=== PATIENT | female | born 1990 | race Caucasian/White ===

== ENCOUNTER 2021-03-04 16:21 | Observation (INO) | payer MEDICAID ==
[2021-03-04 18:17] LABS: Basophils % (A) 0 %; Eosinophils % (A) 0 %; HCT 20.2 % (34.0-46.0); Hypochromasia Marked; Lymphocytes # (A) 2.2 k/uL (1.0-4.8); Lymphocytes % (A) 20 %; MCH 25.3 pg (25.0-35.0); MCHC 30.7 g/dL (31.0-37.0); MCV 82.3 fL (80.0-100.0); Mean Platelet Volume 9.8; Monocytes # (A) 0.4 k/uL (0-1.0); Monocytes % (A) 4 %; Neutrophils # (A) 8.1 k/uL (1.3-7.7); Neutrophils % (A) 75 %; Platelet Count 318 k/uL (150-450); Poikilocytosis Moderate; RBC 2.46 m/uL (3.80-5.40); RDW 14.3 % (11.5-15.5); WBC 10.9 k/uL (3.8-10.6)
--- NOTE | 2021-03-04 18:17 | ED ---
General Adult HPI - General Source: patient Mode of arrival: ambulatory Limitations: no limitations <Yvonne Tom - Last Filed: 03/05/21 00:55> <Evelia Raya - Last Filed: 03/05/21 16:13> - General Chief complaint: Vaginal Bleeding Stated complaint: Dizziness Time Seen by Provider: 03/04/21 17:09 - History of Present Illness Initial comments: 30 year-old female patient presents to the emergency department for evaluation of heavy vaginal bleeding for the last 4 days. She is A2 with two elective abortions over 14 years ago. Patient states she started her period at the normal time on 02/22/21. Had a normal for her period with maybe increase in blood clotting. She started her control ( Fe 1.5-30, taking for two years) on Monday and her bleeding increased signifcantly on Monday. States she was soaking through a pad or tampon every half hour for three days. States when she would remove her tampon she would pass very large blood clots. States symptoms seemed to have improved somewhat today but she is feeling dizzy, weak, and has had multiple near syncopal episodes throughout the day. She states when she goes up the stairs her muscles feel weak and fatigued. She has no appetite today. She denies history of similar symptoms. Has not taken a test. Denies use of blood thinning medications or history of clotting disorders. (Yvonne Tom) - Related Data Home Medications Medication Instructions Recorded Confirmed Dextroamphetamine/Amphetamine 30 mg PO DAILY 03/04/21 03/04/21 [Adderall Xr] Norethindrone-E.estradiol-Iron 1 tab PO DAILY 03/04/21 03/04/21 [Junel Fe 1.5 mg-30 Mcg Tablet] Allergies Allergy/AdvReac Type Severity Reaction Status Date / Time No Known Allergies Allergy Verified 03/04/21 19:37 Review of Systems ROS Other: All systems not noted in ROS Statement are negative. <Yvonne Tom - Last Filed: 03/05/21 00:55> ROS Other: All systems not noted in ROS Statement are negative. <Evelia Raya - Last Filed: 03/05/21 16:13> ROS Statement: Those systems with pertinent positive or pertinent negative responses have been documented in the HPI. Past Medical History Additional Past Medical History / Comment(s): migraine History of Any Multi-Drug Resistant Organisms: None Reported Past Surgical History: Section Additional Past Surgical History / Comment(s): C/S x3, D&C 2. Past Anesthesia/Blood Transfusion Reactions: No Reported Reaction Past Psychological History: ADD/ADHD Smoking Status: Never smoker Past Alcohol Use History: Occasional Past Drug Use History: None Reported - Past Family History Mother Family Medical History: No Reported History <Yvonne Tom Lucero - Last Filed: 03/05/21 00:55> General Exam Limitations: no limitations General appearance: alert, in no apparent distress, other (This is a well-d eveloped, well-nourished adult female in no acute distress.) Eye exam: Present: normal appearance, PERRL, EOMI, other (Pale conjunctiva). Absent: scleral icterus, conjunctival injection, periorbital swelling Respiratory exam: Present: normal lung sounds bilaterally. Absent: respiratory distress, wheezes, rales, rhonchi, stridor Cardiovascular Exam: Present: regular rate, normal rhythm, normal heart sounds. Absent: systolic murmur, diastolic murmur, rubs, gallop, clicks GI/Abdominal exam: Present: soft, normal bowel sounds. Absent: distended, tenderness, guarding, rebound, rigid External exam: Present: normal external exam Speculum exam: Present: normal speculum exam, other (Mild bleeding at this time. Cervical os closed) Neurological exam: Present: alert, oriented X3, CN II-XII intact Psychiatric exam: Present: normal affect, normal mood Skin exam: Present: warm, dry, intact, normal color. Absent: rash <Yvonne Tom M - Last Filed: 03/05/21 00:55> Course <Yvonne Tom - Last Filed: 03/05/21 00:55> Vital Signs 03/04/21 03/04/21 03/04/21 17:02 21:08 21:18 Temperature 98.2 F 99.0 F 99.5 F Pulse Rate 121 H 97 100 Respiratory 18 16 16 Rate Blood Pressure 109/69 113/73 109/79 O2 Sat by Pulse 100 100 100 Oximetry 03/04/21 03/04/21 03/04/21 21:30 21:45 22:00 Temperature 99 F 98.9 F 99 F Pulse Rate 98 100 98 Respiratory 18 16 16 Rate Blood Pressure 115/60 115/60 110/71 O2 Sat by Pulse 100 100 Oximetry 03/04/21 03/05/21 03/05/21 22:32 00:48 01:55 Temperature 99.4 F 98.5 F Pulse Rate 104 H 110 H 106 H Respiratory 16 18 16 Rate Blood Pressure 110/75 111/62 110/60 O2 Sat by Pulse 100 100 100 Oximetry 03/05/21 03/05/21 03/05/21 02:00 02:05 02:15 Temperature 98.5 F 98.8 F 98.8 F Pulse Rate 105 H 101 H 105 H Respiratory 15 16 16 Rate Blood Pressure 104/56 106/70 110/71 O2 Sat by Pulse 99 100 100 Oximetry 03/05/21 02:28 Temperature 98.7 F Pulse Rate 107 H Respiratory 16 Rate Blood Pressure 106/58 O2 Sat by Pulse 99 Oximetry - Reevaluation(s) Reevaluation #1: 03/04/21 18:29 Lab called and notified me directly of abnormal lab, HGB 6.2. (Yvonne Tom) Medical Decision Making - Lab Data Result diagrams: 03/04/21 18:00 03/04/21 18:00 - Radiology Data Radiology results: report reviewed, image reviewed <Yvonne Tom - Last Filed: 03/05/21 00:55> - Lab Data Result diagrams: 03/05/21 06:26 03/04/21 18:00 <Evelia Raya - Last Filed: 03/05/21 16:13> - Medical Decision Making 30-year-old female patient presented to the emergency department today for heavy vaginal bleeding, dizziness, weakness. Physical examination did reveal skin pallor, conjunctival pallor. She was tachycardic upon arrival. Labs reviewed and did reveal hemoglobin at 6.2. She tested negative for . Ultrasound did show small uterine fibroid, possible cervical nabothian cyst. Pelvic exam initially revealed scant bleeding from the cervical os. I did discuss the case with Dr. Cary initially who recommended giving a unit of packed red blood cells, with plan to discharge home for outpatient follow-up if her symptoms improved. Patient did receive 1 unit of packed red blood cells. She remained feeling weak and dizzy. She remained tachycardic especially with even short distance ambulation. She also had increase in vaginal bleeding and soaked through a tampon within 30 minutes. I performed additional pelvic exam which did reveal mild bleeding from the cervical os. I did remove several small clots from the vaginal vault. I discussed the case with Dr. Cary again who agrees to admission. We will give one additional unit of packed red cells. Repeat CBC in the morning. She will be NPO for possible D&C. Case is discussed with my attending Dr. Raya. (Yvonne Tom) I was available for consultation in the emergency department. The history and physical exam were done by the midlevel provider. I was consulted for this patients care. I reviewed the case with the midlevel provider and based on their presentation of the patient, I agree with the assessment, medical decision making and plan of care as documented. Chart was dictated using [employer] dictation software. Attempts were made to correct any dictation errors however some typographical errors may persist. Patient was seen during a national state of emergency due to the Covid-19 pandemic. (Evelia Raya) - Lab Data Lab Results 03/04/21 03/04/21 03/04/21 Range/Units 18:00 18:00 18:00 WBC 10.9 H (3.8-10.6) k/uL RBC 2.46 L (3.80-5.40) m/uL Hgb 6.2 L* (11.4-16.0) gm/dL Hct 20.2 L (34.0-46.0) % MCV 82.3 (80.0-100.0) fL MCH 25.3 (25.0-35.0) pg MCHC 30.7 L (31.0-37.0) g/dL RDW 14.3 (11.5-15.5) % Plt Count 318 (150-450) k/uL MPV 9.8 Neutrophils % 75 % Lymphocytes % 20 % Monocytes % 4 % Eosinophils % 0 % Basophils % 0 % Neutrophils # 8.1 H (1.3-7.7) k/uL Lymphocytes # 2.2 (1.0-4.8) k/uL Monocytes # 0.4 (0-1.0) k/uL Eosinophils # 0.0 (0-0.7) k/uL Basophils # 0.0 (0-0.2) k/uL Hypochromasia Marked Poikilocytosis Moderate PT 10.0 (9.0-12.0) sec INR 0.9 (<1.2) APTT 20.7 L (22.0-30.0) sec Sodium 137 (137-145) mmol/L Potassium 3.8 (3.5-5.1) mmol/L Chloride 104 (98-107) mmol/L Carbon Dioxide 23 (22-30) mmol/L Anion Gap 10 mmol/L BUN 17 (7-17) mg/dL Creatinine 0.69 (0.52-1.04) mg/dL Est GFR (CKD-EPI)AfAm >90 (>60 ml/min/1.73 sqM) Est GFR (CKD-EPI)NonAf >90 (>60 ml/min/1.73 sqM) Glucose 104 H (74-99) mg/dL Calcium 8.9 (8.4-10.2) mg/dL Total Bilirubin 0.3 (0.2-1.3) mg/dL AST 10 L (14-36) U/L ALT 13 (4-34) U/L Alkaline Phosphatase 58 (38-126) U/L Total Protein 6.5 (6.3-8.2) g/dL Albumin 3.8 (3.5-5.0) g/dL HCG, Quant <2.4 mIU/mL Urine Color Urine Appearance (Clear) Urine RBC (0-5) /hpf Urine WBC (0-5) /hpf Urine WBC Clumps (None) /hpf Urine Bacteria (None) /hpf Urine Mucus (None) /hpf Blood Type Blood Type Recheck Bld Type Recheck Status Antibody Screen Crossmatch Spec Expiration Date 03/04/21 03/04/21 Range/Units 18:00 Unknown WBC (3.8-10.6) k/uL RBC (3.80-5.40) m/uL Hgb (11.4-16.0) gm/dL Hct (34.0-46.0) % MCV (80.0-100.0) fL MCH (25.0-35.0) pg MCHC (31.0-37.0) g/dL RDW (11.5-15.5) % Plt Count (150-450) k/uL MPV Neutrophils % % Lymphocytes % % Monocytes % % Eosinophils % % Basophils % % Neutrophils # (1.3-7.7) k/uL Lymphocytes # (1.0-4.8) k/uL Monocytes # (0-1.0) k/uL Eosinophils # (0-0.7) k/uL Basophils # (0-0.2) k/uL Hypochromasia Poikilocytosis PT (9.0-12.0) sec INR (<1.2) APTT (22.0-30.0) sec Sodium (137-145) mmol/L Potassium (3.5-5.1) mmol/L Chloride (98-107) mmol/L Carbon Dioxide (22-30) mmol/L Anion Gap mmol/L BUN (7-17) mg/dL Creatinine (0.52-1.04) mg/dL Est GFR (CKD-EPI)AfAm (>60 ml/min/1.73 sqM) Est GFR (CKD-EPI)NonAf (>60 ml/min/1.73 sqM) Glucose (74-99) mg/dL Calcium (8.4-10.2) mg/dL Total Bilirubin (0.2-1.3) mg/dL AST (14-36) U/L ALT (4-34) U/L Alkaline Phosphatase (38-126) U/L Total Protein (6.3-8.2) g/dL Albumin (3.5-5.0) g/dL HCG, Quant mIU/mL Urine Color Red Urine Appearance Bloody H (Clear) Urine RBC >182 H (0-5) /hpf Urine WBC 17 H (0-5) /hpf Urine WBC Clumps Few H (None) /hpf Urine Bacteria Rare H (None) /hpf Urine Mucus Occasional H (None) /hpf Blood Type O Negative Blood Type Recheck O Neg Bld Type Recheck Status No Antibody Screen NEGATIVE Crossmatch See Detail Spec Expiration Date 03/07/2021 - 2299 - Radiology Data Transvaginal ultrasound was obtained. Report was reviewed in its entirety. Impression by Dr. Dunham shows complex fluid within the lower uterine segment, may represent blood products. Nonspecific 1.7 cm cystic lesion within the cervix, may relate to nabothian cyst. Attention on follow up. Pelvic free fluid. Uterine fibroid. (Yovnne Tom) Critical Care Time Critical Care Time: Yes <Evelia Raya - Last Filed: 03/05/21 16:13> Critical Care Time: 35 minutes for transfusion of blood products (Evelia Raya) Disposition Decision to Admit Reason: Admit from EC Decision Date: 03/05/21 Decision Time: 00:46 <Yvonne Tom - Last Filed: 03/05/21 00:55> <Evelia Raya - Last Filed: 03/05/21 16:13> Clinical Impression: Dysfunctional uterine bleeding, Acute anemia Disposition: ADMITTED IP TO THIS HOSP
[2021-03-04 18:21] LABS: HGB 6.2 gm/dL (11.4-16.0)
[2021-03-04 18:26] LABS: ALT 13 U/L (4-34); AST 10 U/L (14-36); African American GFR (CKD) >90 (>60 ml/min/1.73 sqM); Albumin 3.8 g/dL (3.5-5.0); Alkaline Phosphatase 58 U/L (38-126); Anion Gap 10 mmol/L; Blood Urea Nitrogen 17 mg/dL (7-17); Calcium 8.9 mg/dL (8.4-10.2); Carbon Dioxide 23 mmol/L (22-30); Chloride 104 mmol/L (98-107); Glucose 104 mg/dL (74-99); Non-African American GFR(CKD) >90 (>60 ml/min/1.73 sqM); Potassium 3.8 mmol/L (3.5-5.1); Sodium 137 mmol/L (137-145); Total Bilirubin 0.3 mg/dL (0.2-1.3); Total Protein 6.5 g/dL (6.3-8.2)
[2021-03-04 18:43] LABS: HCG,Quantitative Serum <2.4 mIU/mL
[2021-03-04 18:46] LABS: INR 0.9 (<1.2); Partial Thromboplastin Time 20.7 sec (22.0-30.0)
--- NOTE | 2021-03-04 19:29 | US ---
EXAMINATION TYPE: US transvaginal DATE OF EXAM: 03/04/2021 COMPARISON: OB US CLINICAL HISTORY: Heavy vaginal bleeding. Heavy vaginal bleeding. Hx 3 C Sections. TECHNIQUE: Transvaginal (TV). Date of LMP: 02/22/2021 EXAM MEASUREMENTS: Uterus: 9.1 x 5.3 x 4.0 cm Endometrial Stripe: 0.34 cm Right Ovary: 3.3 x 1.7 x 2.2 cm Left Ovary: Not seen. 1. Uterus: Anteverted Appears heterogeneous. Solid heterogeneous area seen anterior uterus: 1.6 x 1.5 x 1.5, compatible with fibroid. Anechoic area with hyperechoic component seen in cervix: 1.4 x 1 .7 x 0.8 cm. Complex fluid-appearing area seen within lower uterus: 1.4 x 2.3 x 0.5 cm. 2. Endometrium: Measures 0.34 cm. 3. Right Ovary: Small hyperechoic focus seen. Multiple anechoic areas seen, largest measures: 1.1 x 0.9 x 1.0, compatible with physiologic follicles. 4. Left Ovary: Not seen. Spectral, color and waveform doppler imaging shows arterial and venous flow within the ovary. Left ovary not seen. 5. Bilateral Adnexa: Appear wnl. 6. Posterior cul-de-sac: Fluid seen. IMPRESSION: Complex fluid within the lower uterine segment, may represent blood products. Nonspecific 1.7 cm cystic lesion within the cervix, may relate to nabothian cyst. Attention on follow -up. Pelvic free fluid. Uterine fibroid.
[2021-03-04 20:22] LABS: Bacteria,Urine Rare /hpf; Mucus,Urine Occasional /hpf; RBC,Urine >182 /hpf (0-5); WBC,Urine 17 /hpf (0-5)
[2021-03-04 20:23] LABS: Appearance,Urine Bloody (Clear); Color,Urine Red
[2021-03-05] MEDS ORDERED: ONDANSETRON 4 MG/2 ML VIAL IVP PRN (00:44)
[2021-03-05] MEDS ORDERED: NALOXONE 0.4 MG/ML 1 ML VIAL IV PRN (00:44)
[2021-03-05 06:50] LABS: Basophils % (A) 0 %; Eosinophils # (A) 0.1 k/uL (0-0.7); Eosinophils % (A) 1 %; HCT 22.3 % (34.0-46.0); HGB 7.1 gm/dL (11.4-16.0); Hypochromasia Moderate; Lymphocytes # (A) 2.1 k/uL (1.0-4.8); Lymphocytes % (A) 23 %; MCH 27.3 pg (25.0-35.0); MCHC 31.7 g/dL (31.0-37.0); MCV 86.3 fL (80.0-100.0); Mean Platelet Volume 10.1; Monocytes # (A) 0.4 k/uL (0-1.0); Monocytes % (A) 4 %; Neutrophils # (A) 6.4 k/uL (1.3-7.7); Neutrophils % (A) 71 %; Platelet Count 229 k/uL (150-450); Poikilocytosis Moderate; RBC 2.59 m/uL (3.80-5.40); RDW 14.7 % (11.5-15.5)
--- NOTE | 2021-03-05 07:09 | P.HPOB ---
History of Present Illness H&P Date: 03/05/21 Chief Complaint: Menorrhagia and secondary anemia This patient is a pleasant 30-year-old 5 para 3 female who called my office yesterday with complaints of heavy vaginal bleeding for approximately 4 days and other symptomatology including fatigue and shortness of breath. Patient's been on oral contraceptives without significant problems. She states that on Monday she started having heavy vaginal bleeding saturating pads and flooding episodes. This did not resolve and she subsequently went to the emergency department found to have a hemoglobin of 6.2. Patient was admitted last evening by Dr. Cary and has been given 2 units of blood. Ultrasound showed some small uterine fibroids but nothing else remarkable. The endometrium was only 0.3 cm. I examined the patient this morning and she is having some dark red bleeding but no active appearing bleeding. I discussed options with her including D&C versus trial of high-dose oral contraceptive taper and we are going to proceed with trial of hormonal therapy. Review of Systems Constitutional: Reports as per HPI Genitourinary: Reports as per HPI, Reports abnormal vaginal bleeding Past Medical History Additional Past Medical History / Comment(s): migraine History of Any Multi-Drug Resistant Organisms: None Reported Past Surgical History: Section Additional Past Surgical History / Comment(s): C/S x3, D&C 2. Past Anesthesia/Blood Transfusion Reactions: No Reported Reaction Past Psychological History: ADD/ADHD Smoking Status: Never smoker Past Alcohol Use History: Occasional Past Drug Use History: None Reported - Past Family History Mother Family Medical History: No Reported History Medications and Allergies Home Medications Medication Instructions Recorded Confirmed Type Dextroamphetamine/Amphetamine 30 mg PO DAILY 03/04/21 03/04/21 History [Adderall Xr] Norethindrone-E.estradiol-Iron 1 tab PO DAILY 03/04/21 03/04/21 History [Junel Fe 1.5 mg-30 Mcg Tablet] Allergies Allergy/AdvReac Type Severity Reaction Status Date / Time No Known Allergies Allergy Verified 03/04/21 19:37 Exam Vital Signs Temp Pulse Resp BP Pulse Ox 03/05/21 04:55 98.4 F 78 16 100/63 03/05/21 02:35 98.4 F 83 16 100/63 99 03/05/21 02:28 98.7 F 107 H 16 106/58 99 03/05/21 02:15 98.8 F 105 H 16 110/71 100 03/05/21 02:05 98.8 F 101 H 16 106/70 100 03/05/21 02:00 98.5 F 105 H 15 104/56 99 03/05/21 01:55 98.5 F 106 H 16 110/60 100 03/05/21 00:48 110 H 18 111/62 100 03/04/21 22:32 99.4 F 104 H 16 110/75 100 03/04/21 22:00 99 F 98 16 110/71 03/04/21 21:45 98.9 F 100 16 115/60 100 03/04/21 21:30 99 F 98 18 115/60 100 03/04/21 21:18 99.5 F 100 16 109/79 100 03/04/21 21:08 99.0 F 97 16 113/73 100 03/04/21 17:02 98.2 F 121 H 18 109/69 100 Intake and Output 03/04/21 03/05/21 03/05/21 22:59 06:59 14:59 Intake Total 0 590 Balance 0 590 Intake: Blood Product 0 590 Rc As-1 Unit 0 310 [id number] Rc Pheresis 2 As3 Unit 280 [id number] Other: # Voids 1 Weight 78.018 kg 78.018 kg - OBG Physical Exam Vulva: Exam is limited to the perineum. She's having some scant amount of dark red bleeding at this time. Results Result Diagrams: 03/05/21 06:26 03/04/21 18:00 Abnormal Lab Results - Last 24 Hours (Table) 03/04/21 03/04/21 03/04/21 Range/Units 18:00 18:00 18:00 WBC 10.9 H (3.8-10.6) k/uL RBC 2.46 L (3.80-5.40) m/uL Hgb 6.2 L* (11.4-16.0) gm/dL Hct 20.2 L (34.0-46.0) % MCHC 30.7 L (31.0-37.0) g/dL Neutrophils # 8.1 H (1.3-7.7) k/uL APTT 20.7 L (22.0-30.0) sec Glucose 104 H (74-99) mg/dL AST 10 L (14-36) U/L Urine Appearance (Clear) Urine RBC (0-5) /hpf Urine WBC (0-5) /hpf Urine WBC Clumps (None) /hpf Urine Bacteria (None) /hpf Urine Mucus (None) /hpf Crossmatch 03/04/21 03/04/21 03/05/21 Range/Units 18:00 Unknown 06:26 WBC (3.8-10.6) k/uL RBC 2.59 L (3.80-5.40) m/uL Hgb 7.1 L (11.4-16.0) gm/dL Hct 22.3 L (34.0-46.0) % MCHC (31.0-37.0) g/dL Neutrophils # (1.3-7.7) k/uL APTT (22.0-30.0) sec Glucose (74-99) mg/dL AST (14-36) U/L Urine Appearance Bloody H (Clear) Urine RBC >182 H (0-5) /hpf Urine WBC 17 H (0-5) /hpf Urine WBC Clumps Few H (None) /hpf Urine Bacteria Rare H (None) /hpf Urine Mucus Occasional H (None) /hpf Crossmatch See Detail Microbiology - Last 24 Hours (Table) 03/04/21 Unknown Urine Culture - Preliminary Urine,Clean Catch Assessment and Plan Assessment: This is a pleasant 30-year-old 5 para 3 female with a several day history of heavy vaginal bleeding and now with secondary anemia. I had a long discussion with the patient about treatment options including D&C and hormonal therapy. Since her ultrasound does not show any significant intrauterine pathology or leaning towards hormonal treatment at this time. Certainly she will need to have a D&C at some point in the near future however at today she wishes to try an oral contraceptive taper. I did give her this medication and instructed her how to take. Hemoglobin after 2 units of blood is 7.1 therefore I do think it warrants her having another unit of blood because she wishes to resume normal activities as quickly as possible. Plan is to watch her this morning and give her another unit of blood if she continues to feel better and maybe discharge home later today and follow up with me on Monday as an outpatient. (1) Acute anemia Current Visit: Yes Status: Acute Code(s): D64.9 - ANEMIA, UNSPECIFIED SNOMED Code(s): 466102131 (2) Dysfunctional uterine bleeding Current Visit: Yes Status: Acute Code(s): N93.8 - OTHER SPECIFIED ABNORMAL UTERINE AND VAGINAL BLEEDING SNOMED Code(s): 44459102156940
--- NOTE | 2021-03-05 12:32 | P.PN ---
Progress Note - Text Progress Note Date: 03/05/21 Patient seen again this morning. Between this morning and this afternoon she began having heavy bleeding again and passed several large clots. I discussed with the patient and the next step in management and I believe she needs to proceed with a dilation and curettage in hopes of stopping further bleeding. She is completely agreeable. I did discuss the surgery and risks and risks of infection, bleeding, possible uterine perforation. All the patient's questions are answered and a written consent is obtained. She understands if she were to continue to have bleeding problems of a could not stop she could ultimately need further definitive surgery. Plan is dilation and curettage later this afternoon.
[2021-03-05] MEDS ORDERED: IV FLUID CONTINUATION 1,000 ML IV ONE (15:32)
[2021-03-05] MEDS ORDERED: LACTATED RINGERS 1,000 ML IV ONE (15:32)
[2021-03-05] MEDS ORDERED: ONDANSETRON 4 MG/2 ML VIAL IVP ONE (15:41)
[2021-03-05] MEDS ORDERED: DEXAMETHASONE SOD PHOSPHATE 4 MG/ML 1 ML VIAL IVP ONE (15:44)
[2021-03-05] MEDS ORDERED: SCOPOLAMINE 1.5MG/72HR PATCH TRANSDERM ONE (15:45)
[2021-03-05] MEDS ORDERED: PROPOFOL 10 MG/ML 20 ML VIAL IV ONE (16:35)
[2021-03-05] MEDS ORDERED: SUCCINYLCHOLINE CHLORIDE 100 MG/5 ML SYR IV ONE (16:35)
[2021-03-05] MEDS ORDERED: MIDAZOLAM 2 MG/2 ML VIAL ONE (16:35)
[2021-03-05] MEDS ORDERED: fentaNYL (PF) 50 MCG/ML 2 ML AMP ONE (16:35)
--- NOTE | 2021-03-05 17:15 | P.OP ---
Date of Procedure: 03/05/21 Preoperative Diagnosis: Menorrhagia with secondary anemia Postoperative Diagnosis: Same Procedure(s) Performed: Dilation and curettage Anesthesia: ANTONY Surgeon: Ramana Berry Estimated Blood Loss (ml): 20 Urine output (ml): 25 Pathology: other (Uterine curettings) Condition: stable Disposition: PACU Indications for Procedure: Please see dictated H&P for intimate details of this patient's admission. In brief summary this is a pleasant 30-year-old 5 para 3 female who presented to the emergency department yesterday evening with complaints of 4 days of heavy vaginal bleeding. Evaluation in the emergency department showed a hemoglobin of 6.2 and a ultrasound with small fibroids but normal-appearing uterine lining. Patient was initially thought to be slowing down and we began the oral contraceptive taper in hopes of treating this nonsurgically. Patient however began bleeding heavier morning and therefore he now presents for D&C to further attempt treatment. Patient does understand the surgery and risks and risks of infection, bleeding, possible uterine perforation. All the patient's questions are answered and a written consent is obtained. Operative Findings: This patient had a normal feeling endometrial cavity without evidence of polyps or fibroids. There was not a lot of endometrial tissue Description of Procedure: This patient is taken to the operating room where she is laid in the supine position. She subsequently undergoes general endotracheal anesthesia without incident. With an adequate level of anesthesia she's placed in dorsal lithotomy position. She has a vaginal perineal prep and drape. Examination under anesthesia shows a slightly enlarged uterus of normal size otherwise. There is some dark red blood in the vault. Bladder is drained at this time for 25 mL of clear urine. I then placed a weighted speculum the posterior vagina. The anterior lip of the cervix is gravid and Allis clamp and the uterus is then sounded to 8.5 cm. Gentle dilation is done of the endocervix. With this done I then take a polyp forceps and make several passes through the cavity without any significant tissue. A gentle but thorough sharp curettage is then done of all 4 quadrants again with scant amount of tissue. Feeling the lining and does not feel to be irregular. After multiple passes are done and the bleeding appears to subside the procedure is ended. The Allis clamp and weighted speculum removed. All counts are correct 3. There are no complications. Patient is awakened from anesthesia and taken recovery room in satisfactory condition.
[2021-03-05] MEDS ORDERED: HYDROmorphone 0.5 MG/0.5 ML SYRINGE IVP ONE ×2 (17:35→17:41)
[2021-03-05 18:17] LABS: Basophils % (A) 0 %; Eosinophils % (A) 0 %; HCT 24.3 % (34.0-46.0); HGB 7.8 gm/dL (11.4-16.0); Hypochromasia Moderate; Lymphocytes % (A) 8 %; MCH 27.8 pg (25.0-35.0); MCV 86.9 fL (80.0-100.0); Mean Platelet Volume 9.5; Monocytes # (A) 0.2 k/uL (0-1.0); Monocytes % (A) 1 %; Neutrophils # (A) 11.7 k/uL (1.3-7.7); Neutrophils % (A) 90 %; Platelet Count 241 k/uL (150-450); Poikilocytosis Moderate; RDW 15.1 % (11.5-15.5)
--- NOTE | 2021-03-05 18:33 | P.PN ---
Progress Note - Text Progress Note Date: 03/05/21 I did have a discussion with the patient in recovery room and her regards to surgical findings. I did not find any significant tissue growths or abnormalities on her D&C however it did appear to help her bleeding subside. I did a CBC in recovery room was 7.8 and plan at this time is to transfuse one more unit of blood and if her bleeding means good and her CBC is fine in the morning and she could potentially go home follow up with me on Monday. I did again want her to continue her oral contraceptive taper and efforts to heal the lining. If she were to continue bleeding excessively the next step would be a trial of endometrial ablation and I did discuss this possibility with them briefly. Dr. Savage resume care of this patient over the weekend in my absence.
[2021-03-06 06:33] LABS: Basophils % (A) 0 %; Eosinophils % (A) 0 %; HCT 28.9 % (34.0-46.0); HGB 9.1 gm/dL (11.4-16.0); Hypochromasia Moderate; Lymphocytes # (A) 1.5 k/uL (1.0-4.8); Lymphocytes % (A) 16 %; MCHC 31.4 g/dL (31.0-37.0); MCV 89.4 fL (80.0-100.0); Mean Platelet Volume 9.8; Monocytes # (A) 0.4 k/uL (0-1.0); Monocytes % (A) 4 %; Neutrophils # (A) 7.5 k/uL (1.3-7.7); Neutrophils % (A) 79 %; Platelet Count 246 k/uL (150-450); Poikilocytosis Moderate; RBC 3.23 m/uL (3.80-5.40); RDW 15.2 % (11.5-15.5); WBC 9.5 k/uL (3.8-10.6)
[2021-03-06 09:05] VITALS: BP 93/63; PULSE 83; RESP 14; TEMP 98.5
--- NOTE | 2021-03-06 10:01 | P.DS ---
Providers Date of admission: 03/05/21 01:12 Expected date of discharge: 03/06/21 Attending physician: Ramana Berry Primary care physician: Zach Acharya [facility] Course: Jacky is feeling very well this morning. She relates that since her D&C last night she has had very light spotting no active bleeding and no passage of clots. She has the remainder of her estradiol that she's been taking over the next couple of days and has an appointment scheduled with Dr. Berry next week. Her hemoglobin this morning is 9.1 following 1 further unit of blood and she relates that she is feeling very well. She would like breakfast. We'll plan to allow her to have a diet this morning and plan for discharged home later today. Vital signs are stable and afebrile. Heart regular, lungs clear, extremities without pain. Abdomen is soft and nontender. Assessment acute anemia from blood loss with menorrhagia of unknown etiology pathology pending from D&C. Plan as above she is aware should she start having any significant heavy bleeding or passage of clots with the weekend that she is to notify us or return through the emergency room and there is a potential that she will need to have either NovaSure ablation or definitive surgery should that occur. Patient Condition at Discharge: Good Plan - Discharge Summary Discharge Rx Participant: Yes New Discharge Prescriptions: No Action Norethindrone-E.estradiol-Iron [Junel Fe 1.5 mg-30 Mcg Tablet] 1 tab PO DAILY Dextroamphetamine/Amphetamine [Adderall Xr] 30 mg PO DAILY Discharge Medication List Dextroamphetamine/Amphetamine [Adderall Xr] 30 mg PO DAILY 03/04/21 [History] Norethindrone-E.estradiol-Iron [Junel Fe 1.5 mg-30 Mcg Tablet] 1 tab PO DAILY 03/04/21 [History] Follow up Appointment(s)/Referral(s): Ramana Berry MD [STAFF PHYSICIAN] - 03/08/21 9:15 am Ambulatory/Diagnostic Orders: Miscellaneous Lab Order [LAB.AMB] Location: None Selected Patient Instructions/Handouts: Anemia (DC) Activity/Diet/Wound Care/Special Instructions: Please take the oral contraceptive taper as instructed (3 pills on Monday, 2 pills on Monday, and 2 pills on Monday). No intercourse or anything per vagina for 7 days. Please follow-up on Monday at 9:30 in my office as instructed. Discharge Disposition: HOME SELF-CARE
== END 2021-03-06 15:05 | disposition home or self-care (01) ==
LOC: EC 16:21 → 4SSUR 03-05 01:12
PROVIDERS: ADMIT Obstetrics & Gynecology; ATTEND Obstetrics & Gynecology
DX: N92.0 Excessive and frequent menstruation with regular cycle (principal); D62 Acute posthemorrhagic anemia; D25.9 Leiomyoma of uterus, unspecified; R00.0 Tachycardia, unspecified; N93.8 Other specified abnormal uterine and vaginal bleeding; G43.909 Migraine, unspecified, not intractable, without status migrainosus; F90.9 Attention-deficit hyperactivity disorder, unspecified type; Z20.822 Contact with and (suspected) exposure to COVID-19; Z79.3 Long term (current) use of hormonal contraceptives; Z79.899 Other long term (current) drug therapy
CPT/HCPCS: 36430 ×2; 58120; 99285; 36415; 93005; 86900; 86901; 88305; 80053; 85025 ×3; 85610; 85730; 86850; 86920 ×2; 84702; 87086; 87635; 93976; 76830; G0378 ×2; P9016 ×2; J2250; J1100; J2405; J3010; J0330; J2704; J1170

== ENCOUNTER → 2021-03-08 | Outpatient (CLI) | payer MEDICAID ==
[2021-03-08 08:53] LABS: HCT 28.7 % (34.0-46.0); HGB 9.2 gm/dL (11.4-16.0); Hypochromasia Marked; MCH 28.8 pg (25.0-35.0); Mean Platelet Volume 9.5; Platelet Count 225 k/uL (150-450); Poikilocytosis Slight; RBC 3.19 m/uL (3.80-5.40); RDW 15.8 % (11.5-15.5); WBC 9.8 k/uL (3.8-10.6)
== END | disposition home or self-care (01) ==
LOC: LABWHC1 08:31
PROVIDERS: ATTEND Nurse Practitioner
DX: N93.9 Abnormal uterine and vaginal bleeding, unspecified (principal)
CPT/HCPCS: 36415; 85027

== ENCOUNTER → 2021-03-26 | Outpatient (CLI) | payer MEDICAID ==
[2021-03-26 12:30] LABS: Basophils % (A) 0 %; Eosinophils # (A) 0.1 k/uL (0-0.7); Eosinophils % (A) 1 %; HCT 32.7 % (34.0-46.0); HGB 9.6 gm/dL (11.4-16.0); Hypochromasia Marked; Lymphocytes # (A) 2.3 k/uL (1.0-4.8); Lymphocytes % (A) 29 %; MCH 25.6 pg (25.0-35.0); MCHC 29.4 g/dL (31.0-37.0); MCV 87.1 fL (80.0-100.0); Mean Platelet Volume 8.8; Monocytes # (A) 0.3 k/uL (0-1.0); Monocytes % (A) 4 %; Neutrophils # (A) 5.2 k/uL (1.3-7.7); Neutrophils % (A) 64 %; Platelet Count 384 k/uL (150-450); Poikilocytosis Slight; RBC 3.75 m/uL (3.80-5.40); RDW 15.9 % (11.5-15.5); WBC 8.1 k/uL (3.8-10.6)
[2021-03-26 12:39] LABS: ALT 13 U/L (4-34); AST 11 U/L (14-36); African American GFR (CKD) >90 (>60 ml/min/1.73 sqM); Albumin 4.2 g/dL (3.5-5.0); Albumin/Globulin Ratio 1.4; Alkaline Phosphatase 59 U/L (38-126); Anion Gap 10 mmol/L; Blood Urea Nitrogen 15 mg/dL (7-17); Calcium 9.7 mg/dL (8.4-10.2); Carbon Dioxide 25 mmol/L (22-30); Chloride 104 mmol/L (98-107); Globulin 2.9 g/dL; Glucose 100 mg/dL (74-99); Non-African American GFR(CKD) >90 (>60 ml/min/1.73 sqM); Potassium 4.5 mmol/L (3.5-5.1); Sodium 139 mmol/L (137-145); Total Bilirubin 0.5 mg/dL (0.2-1.3); Total Protein 7.1 g/dL (6.3-8.2)
== END | disposition home or self-care (01) ==
LOC: LABWHC1 11:31
PROVIDERS: ATTEND Family Medicine
DX: D64.9 Anemia, unspecified (principal)
CPT/HCPCS: 36415; 80053; 85025

== ENCOUNTER 2021-03-30 13:28 | Emergency (ER) | payer MEDICAID ==
[2021-03-30 13:48] VITALS: BP 122/61; RESP 20; TEMP 97.9
[2021-03-30 14:01] LABS: Anisocytosis Slight; Basophils % (A) 0 %; Eosinophils # (A) 0.1 k/uL (0-0.7); Eosinophils % (A) 1 %; HCT 31.1 % (34.0-46.0); HGB 9.5 gm/dL (11.4-16.0); Hypochromasia Marked; Lymphocytes % (A) 25 %; MCH 26.2 pg (25.0-35.0); MCHC 30.6 g/dL (31.0-37.0); MCV 85.5 fL (80.0-100.0); Mean Platelet Volume 8.6; Monocytes # (A) 0.3 k/uL (0-1.0); Monocytes % (A) 4 %; Neutrophils # (A) 5.3 k/uL (1.3-7.7); Neutrophils % (A) 68 %; Platelet Count 277 k/uL (150-450); Poikilocytosis Slight; RBC 3.64 m/uL (3.80-5.40); RDW 16.5 % (11.5-15.5); WBC 7.8 k/uL (3.8-10.6)
[2021-03-30 14:17] LABS: ALT 13 U/L (4-34); AST 13 U/L (14-36); African American GFR (CKD) >90 (>60 ml/min/1.73 sqM); Albumin 4.2 g/dL (3.5-5.0); Alkaline Phosphatase 59 U/L (38-126); Anion Gap 11 mmol/L; Blood Urea Nitrogen 14 mg/dL (7-17); Calcium 9.2 mg/dL (8.4-10.2); Carbon Dioxide 23 mmol/L (22-30); Chloride 106 mmol/L (98-107); Glucose 135 mg/dL (74-99); Non-African American GFR(CKD) >90 (>60 ml/min/1.73 sqM); Potassium 3.9 mmol/L (3.5-5.1); Sodium 140 mmol/L (137-145); Total Bilirubin 0.4 mg/dL (0.2-1.3)
[2021-03-30 15:45] VITALS: PULSE 88
--- NOTE | 2021-03-30 15:52 | ED ---
Female Urogenital HPI - General Chief complaint: Vaginal Bleeding Stated complaint: hemorrhaging Time Seen by Provider: 03/30/21 14:14 Source: patient Mode of arrival: ambulatory Limitations: no limitations - History of Present Illness Initial comments: Patient is a 30-year-old A2 female who presents to the emergency department with heavy vaginal bleeding. Patient seen previously in the emergency department on 03/04/21 for the vaginal bleeding with ultrasound showing small uterine fibroids, otherwise unremarkable. Patient was then given 2 units of blood due to hemoglobin of 6.2 and admitted to the hospital. Patient was evaluated Jamal who performed a dilation and curettage on 03/05/21. She was discharged with an oral contraceptive taper. Patient reports that the vaginal bleeding was minimal until last night when she started to see blood clots in the toilet. She reports her cycle does not start until next week. Currently, patient reports dizziness. She denies fever, chills, chest pain, shortness of breath, loss of consciousness. - Related Data Home Medications Medication Instructions Recorded Confirmed Dextroamphetamine/Amphetamine 30 mg PO DAILY 03/04/21 03/30/21 [Adderall Xr] Norethindrone-E.estradiol-Iron 1 tab PO DAILY 03/04/21 03/30/21 [Junel Fe 1.5 mg-30 Mcg Tablet] Allergies Allergy/AdvReac Type Severity Reaction Status Date / Time No Known Allergies Allergy Verified 03/30/21 15:58 Review of Systems ROS Statement: Those systems with pertinent positive or pertinent negative responses have been documented in the HPI. ROS Other: All systems not noted in ROS Statement are negative. Past Medical History Additional Past Medical History / Comment(s): migraine History of Any Multi-Drug Resistant Organisms: None Reported Past Surgical History: Section Additional Past Surgical History / Comment(s): C/S x3, D&C 2. Past Anesthesia/Blood Transfusion Reactions: No Reported Reaction Past Psychological History: ADD/ADHD Smoking Status: Never smoker Past Alcohol Use History: Occasional Past Drug Use History: None Reported - Past Family History Mother Family Medical History: No Reported History General Exam Limitations: no limitations General appearance: alert, in no apparent distress Head exam: Present: atraumatic, normocephalic, normal inspection Eye exam: Present: normal appearance, PERRL, EOMI. Absent: scleral icterus, conjunctival injection, periorbital swelling Respiratory exam: Present: normal lung sounds bilaterally. Absent: respiratory distress, wheezes, rales, rhonchi, stridor Cardiovascular Exam: Present: regular rate, normal rhythm, normal heart sounds. Absent: systolic murmur, diastolic murmur, rubs, gallop, clicks GI/Abdominal exam: Present: soft. Absent: tenderness Extremities exam: Present: normal inspection, full ROM, normal capillary refill Neurological exam: Present: alert, oriented X3, CN II-XII intact Psychiatric exam: Present: normal affect, normal mood Skin exam: Present: warm, dry, intact, normal color. Absent: rash, pallor Course Vital Signs 03/30/21 03/30/21 13:45 15:15 Temperature 97.9 F Pulse Rate 103 H 88 Respiratory 20 Rate Blood Pressure 122/61 O2 Sat by Pulse 99 97 Oximetry - Reevaluation(s) Reevaluation #1: 03/30/21 15:53 I reevaluated the patient at 3:15 PM. Patient is resting comfortably in bed. Heart rate 88 bpm. Medical Decision Making - Medical Decision Making This is a A2 female who presents with heavy vaginal bleeding since last night. Patient had a dilation and curettage performed on 03/05/[address] Berry due to heavy vaginal bleeding. Hemoglobin is 9.5, similar to her previous visits in February of 2021. Results discussed with Dr. Wing who did come to a [facility] emergency department to evaluate patient. Patient instructed to double her dose of oral contraceptive until ablation procedure in next week. Patient understands plan. Return parameters discussed. - Lab Data Result diagrams: 03/30/21 13:55 03/30/21 13:55 Lab Results 03/30/21 03/30/21 03/30/21 Range/Units 06:04 13:55 13:55 WBC 7.8 (3.8-10.6) k/uL RBC 3.64 L (3.80-5.40) m/uL Hgb 9.5 L (11.4-16.0) gm/dL Hct 31.1 L (34.0-46.0) % MCV 85.5 (80.0-100.0) fL MCH 26.2 (25.0-35.0) pg MCHC 30.6 L (31.0-37.0) g/dL RDW 16.5 H (11.5-15.5) % Plt Count 277 (150-450) k/uL MPV 8.6 Neutrophils % 68 % Lymphocytes % 25 % Monocytes % 4 % Eosinophils % 1 % Basophils % 0 % Neutrophils # 5.3 (1.3-7.7) k/uL Lymphocytes # 2.0 (1.0-4.8) k/uL Monocytes # 0.3 (0-1.0) k/uL Eosinophils # 0.1 (0-0.7) k/uL Basophils # 0.0 (0-0.2) k/uL Hypochromasia Marked Poikilocytosis Slight Anisocytosis Slight Sodium 140 (137-145) mmol/L Potassium 3.9 (3.5-5.1) mmol/L Chloride 106 (98-107) mmol/L Carbon Dioxide 23 (22-30) mmol/L Anion Gap 11 mmol/L BUN 14 (7-17) mg/dL Creatinine 0.81 (0.52-1.04) mg/dL Est GFR (CKD-EPI)AfAm >90 (>60 ml/min/1.73 sqM) Est GFR (CKD-EPI)NonAf >90 (>60 ml/min/1.73 sqM) Glucose 135 H (74-99) mg/dL Calcium 9.2 (8.4-10.2) mg/dL Total Bilirubin 0.4 (0.2-1.3) mg/dL AST 13 L (14-36) U/L ALT 13 (4-34) U/L Alkaline Phosphatase 59 (38-126) U/L Total Protein 7.0 (6.3-8.2) g/dL Albumin 4.2 (3.5-5.0) g/dL Urine Color Urine Appearance (Clear) Urine pH (5.0-8.0) Ur Specific [place] (1.001-1.035) Urine Protein (Negative) Urine Glucose (UA) (Negative) Urine Ketones (Negative) Urine Blood (Negative) Urine Nitrite (Negative) Urine Bilirubin (Negative) Urine Urobilinogen (<2.0) mg/dL Ur Leukocyte Esterase (Negative) Urine RBC (0-5) /hpf Urine WBC (0-5) /hpf Ur Squamous Epith Cells (0-4) /hpf Urine Mucus (None) /hpf Urine HCG, Qual Not Detected (Not Detectd) 03/30/21 Range/Units 16:04 WBC (3.8-10.6) k/uL RBC (3.80-5.40) m/uL Hgb (11.4-16.0) gm/dL Hct (34.0-46.0) % MCV (80.0-100.0) fL MCH (25.0-35.0) pg MCHC (31.0-37.0) g/dL RDW (11.5-15.5) % Plt Count (150-450) k/uL MPV Neutrophils % % Lymphocytes % % Monocytes % % Eosinophils % % Basophils % % Neutrophils # (1.3-7.7) k/uL Lymphocytes # (1.0-4.8) k/uL Monocytes # (0-1.0) k/uL Eosinophils # (0-0.7) k/uL Basophils # (0-0.2) k/uL Hypochromasia Poikilocytosis Anisocytosis Sodium (137-145) mmol/L Potassium (3.5-5.1) mmol/L Chloride (98-107) mmol/L Carbon Dioxide (22-30) mmol/L Anion Gap mmol/L BUN (7-17) mg/dL Creatinine (0.52-1.04) mg/dL Est GFR (CKD-EPI)AfAm (>60 ml/min/1.73 sqM) Est GFR (CKD-EPI)NonAf (>60 ml/min/1.73 sqM) Glucose (74-99) mg/dL Calcium (8.4-10.2) mg/dL Total Bilirubin (0.2-1.3) mg/dL AST (14-36) U/L ALT (4-34) U/L Alkaline Phosphatase (38-126) U/L Total Protein (6.3-8.2) g/dL Albumin (3.5-5.0) g/dL Urine Color Yellow Urine Appearance Clear (Clear) Urine pH 6.0 (5.0-8.0) Ur Specific [place] 1.028 (1.001-1.035) Urine Protein Trace H (Negative) Urine Glucose (UA) Negative (Negative) Urine Ketones Trace H (Negative) Urine Blood Moderate H (Negative) Urine Nitrite Negative (Negative) Urine Bilirubin Negative (Negative) Urine Urobilinogen 2.0 (<2.0) mg/dL Ur Leukocyte Esterase Negative (Negative) Urine RBC 6 H (0-5) /hpf Urine WBC 1 (0-5) /hpf Ur Squamous Epith Cells 1 (0-4) /hpf Urine Mucus Few H (None) /hpf Urine HCG, Qual (Not Detectd) Disposition Clinical Impression: Vaginal bleeding Disposition: HOME SELF-CARE Condition: Fair Instructions (If sedation given, give patient instructions): Dysfunctional Uterine Bleeding (ED) Additional Instructions: Follow-up with Dr. Berry as directed. Return to the emergency department if you experience new, concerning, or worsening symptoms. Is patient prescribed a controlled substance at d/c from ED?: No Referrals: Zach Acharya MD [Primary Care Provider] - 1-2 days Time of Disposition: 16:33
[2021-03-30 16:14] LABS: Appearance,Urine Clear (Clear); Bilirubin,Urine Negative (Negative); Blood,Urine Moderate (Negative); Color,Urine Yellow; Glucose,Urine (UA) Negative (Negative); Ketones,Urine Trace (Negative); Leukocyte Esterase,Urine Negative (Negative); Mucus,Urine Few /hpf; Nitrite,Urine Negative (Negative); Protein,Urine Trace (Negative); RBC,Urine 6 /hpf (0-5); Specific Gravity,Urine 1.028 (1.001-1.035); Squamous Epithelial Cell,Urine 1 /hpf (0-4); WBC,Urine 1 /hpf (0-5)
--- NOTE | 2021-03-30 18:38 | P.PN ---
Progress Note - Text Progress Note Date: 03/30/21 Jacky called my office late this morning with complaints of heavy vaginal bleeding. Her history is such that approximately 1 month ago she had a heavy bleeding episode that required 4 units of blood and a dilation and curettage. Pathology findings at time are negative. Patient was transfused at that time to a hemoglobin of approximately 9. Patient's been on oral contraceptives and doing well however this morning began having heavier bleeding and passing large clots. She also had which she thought was some tachycardia at home to 160. I instructed patient come to the emergency department. Evaluation here shows her hemoglobin to be 9.5. She did show me a picture of her bleeding and appears to be dark red in nature. At this moment she is not having active heavy bleeding and therefore I feel she is stable for discharge home to go on a continued control twice a day and see me in approximately 2 days. She and I did discuss definitive surgery for this since this appears to be recurrent episode. We've decided to proceed with an endometrial ablation is to be scheduled for sometime next week. Given directions to call prior to that time if she's having any recurrent problems that she feels needs addressed earlier. Patient was scheduled to see me Monday at 1:30 PM.
== END 2021-03-30 16:40 | disposition home or self-care (01) ==
LOC: EC 13:28
DX: N93.9 Abnormal uterine and vaginal bleeding, unspecified (principal); G43.909 Migraine, unspecified, not intractable, without status migrainosus; F90.9 Attention-deficit hyperactivity disorder, unspecified type
CPT/HCPCS: 36415; 80053; 81001; 81025; 85025; 99284

== ENCOUNTER 2021-04-08 05:49 | Day surgery (SDC) | payer MEDICAID ==
[2021-04-05 15:52] VITALS: BMI 32.5
--- NOTE | 2021-04-07 12:24 | P.HPOB ---
History of Present Illness H&P Date: 04/07/21 Chief Complaint: Menorrhagia. Secondary anemia This patient is a pleasant 30 yr female who is presenting for endometrial ablation secondary to severe menorrhagia and secondary anemia. History is such that she has been on OCPs and in February developed a large amount of prolonged uterine bleeding. This required hospitalization, 4 u pRBCs, and a D&C. Evaluation at that time included a pelvic ultrasound that showed a normal endometrial thickness (.34cm) and a small fibroid (1.7cm). Pathology from her D&C was benign. She was discharge home on OCPs, then most recently had another bleeding episode. Hgb was stable (9.5) however now presents for endometrial ablation at an attempt to treat to avoid future episodes of menorrhagia. Review of Systems Genitourinary: Reports as per HPI Menstruation: Reports as per HPI Past Medical History Additional Past Medical History / Comment(s): migraines History of Any Multi-Drug Resistant Organisms: None Reported Past Surgical History: Section Additional Past Surgical History / Comment(s): C/S x3, D&C 2. Past Anesthesia/Blood Transfusion Reactions: No Reported Reaction Past Psychological History: ADD/ADHD Smoking Status: Never smoker Past Alcohol Use History: Occasional Past Drug Use History: None Reported - Past Family History Mother Family Medical History: No Reported History Medications and Allergies Home Medications Medication Instructions Recorded Confirmed Type Dextroamphetamine/Amphetamine 30 mg PO DAILY 03/04/21 04/05/21 History [Adderall Xr] Norethindrone-E.estradiol-Iron 1 tab PO DAILY 03/04/21 04/05/21 History [Junel Fe 1.5 mg-30 Mcg Tablet] Allergies Allergy/AdvReac Type Severity Reaction Status Date / Time No Known Allergies Allergy Verified 04/05/21 15:46 Exam - OBG Physical Exam Abdomen: bowel sounds normal, no diffuse tenderness, no bruit present, no guarding noted, no hepatomegaly, no splenomegaly, no mass Vulva: both: normal Vagina: normal moisture, no discharge Cervix: no lesion, no discharge Uterus: normal size, normal contour Assessment and Plan Assessment: This is a pleasant 30 yr female with significant menorrhagia and secondary anemia that has failed hormonal therapy, now presenting for endometrial ablation for treatment. Plan is hysteroscopy, D&C and Novasure endometrial ablation. I have discussed this surgery and risks: infection, bleeding, possible uterine perforation and/or thermal injury. She also understands that she needs to continue a reliable for of control to prevent . All of her questions were answered and a written consent obtained. (1) Acute anemia Status: Acute Code(s): D64.9 - ANEMIA, UNSPECIFIED SNOMED Code(s): 006633432 (2) Dysfunctional uterine bleeding Status: Acute Code(s): N93.8 - OTHER SPECIFIED ABNORMAL UTERINE AND VAGINAL BLEEDING SNOMED Code(s): 33580760763442
[~2021-04-08 05:49] MED LIST: DEXAMETHASONE SOD PHOSPHATE 4 MG/ML 1 ML VIAL IV ONE; HYDROmorphone 0.5 MG/0.5 ML SYRINGE IVP PRN; LACTATED RINGERS 1,000 ML IV SCH; LIDOCAINE 1% (10MG/ML) FOR IV START INTRADERMA PRN; ONDANSETRON 4 MG/2 ML VIAL IVP ONE; Pre Op ABX Message 1 EACH MISC MISCELLANE ONE; SCOPOLAMINE 1.5MG/72HR PATCH TRANSDERM ONE
[2021-04-08] MEDS ORDERED: SUCCINYLCHOLINE CHLORIDE 100 MG/5 ML SYR IV ONE (06:43)
[2021-04-08] MEDS ORDERED: MIDAZOLAM 2 MG/2 ML VIAL ONE (06:43)
[2021-04-08] MEDS ORDERED: fentaNYL (PF) 50 MCG/ML 2 ML AMP ONE (06:43)
[2021-04-08] MEDS ORDERED: PROPOFOL 10 MG/ML 20 ML VIAL IV ONE (06:43)
[2021-04-08] MEDS ORDERED: LIDOCAINE 1% INJ 10MG/ML (20 ML MDV) ONE (06:43)
--- NOTE | 2021-04-08 07:31 | P.OP ---
Date of Procedure: 04/08/21 Preoperative Diagnosis: #1: Dysfunctional uterine bleeding. #2: Secondary anemia Postoperative Diagnosis: Same Procedure(s) Performed: #1: Hysteroscopy. 2: Dilation and curettage. #3: NovaSure endometrial ablation Anesthesia: ANTONY Surgeon: Ramana Berry Estimated Blood Loss (ml): 10 Urine output (ml): 20 Pathology: other (Uterine curettings) Condition: stable Disposition: PACU Indications for Procedure: Please see dictated H&P for intimate details of this patient's admission. Brief summary this is a pleasant 30-year-old female with sudden onset of dysfunctional uterine bleeding earlier last month. Bleeding was such that the patient required 4 units of blood and a D&C at that time. Patient was placed on oral contraceptive taper and then oral contraceptives however she's continued to have irregular bleeding. Patient now presents for trial of endometrial ablation for treatment. She does understand this procedure and risks including risks of infection, bleeding, possible uterine perforation, and/or thermal injury. All the patient's questions are answered and a written consent is obtained. Operative Findings: This patient had a thickened endometrial lining with some nodularity consistent with possible submucosal fibroids. These were small. Description of Procedure: This patient is taken to the operating room where she is laid in the supine position. She subsequent undergoes general endotracheal anesthesia without incident. With an adequate level of anesthesia she's placed in dorsal lithotomy position. She has a vaginal perineal prep and drape. Examination under anest hesia shows a mid position uterus of normal size. I first drain the bladder for 20 mL of clear urine. Weighted speculum was placed in the posterior vagina. The anterior lip of the cervix is grabbed with an Allis clamp and the uterus is gently sounded to 8.5 cm. Serial dilation is done of the endocervix to allow the hysteroscope easily uterine cavity. Hysteroscopy is then performed using saline solution. Uterine cavity appears to be slightly thickened and somewhat nodular consistent with possible submucosal fibroids. This done the cavity length was measured to be 6.0 cm and the hysteroscope was removed. Cervix is dilated more gently to allow a sharp curet and the uterine cavity and a gentle but thorough 4 quadrant curettage is done. I also placed the polyp forceps unable to remove anything with those. This completed the NovaSure device is then opened and set at a length of 6.0 cm. It is seated in place and opens up to a width of 4.7 cm. With this done and then passes the cavity integrity test is unable [address] setting for 52 seconds. The NovaSure device is then removed and appears to be intact. Hysteroscopy is performed again and the uterine cavity appears to be ablated up to the endocervix. There appears to be good results. With this done the procedure is ended. The Allis clamp and weighted speculum removed. Patient is awakened from anesthesia and taken recovery room satisfactory condition. All counts correct 3. There are no complications.
[2021-04-08 07:39] VITALS: RESP 16; TEMP 98.4
[2021-04-08 08:34] VITALS: BP 95/66; PULSE 87
== END 2021-04-08 08:52 | disposition home or self-care (01) ==
LOC: OR 05:49
PROVIDERS: ATTEND Obstetrics & Gynecology
DX: N93.8 Other specified abnormal uterine and vaginal bleeding (principal); D64.89 Other specified anemias; F90.9 Attention-deficit hyperactivity disorder, unspecified type
CPT/HCPCS: 58563; 81025; 88305; J2250; J1100; J2405; J2001; J3010; J0330; J2704; J1170; J1790